=== PATIENT | male | born 1945 | race Caucasian/White ===

== ENCOUNTER 2018-07-19 09:59 | Emergency (ER) | payer MEDICARE ==
--- NOTE | 2018-07-19 11:10 | UC ---
Ear Complaint HPI - HPI Summary HPI Summary: Pt presents with c/o bilateral ear fullness. Pt states he has a hx of cerumen impaction and thinks he needs to have ears flushed. - History of Current Complaint Chief Complaint: UCEar Stated Complaint: BI LAT EAR CONCERN Time Seen by Provider: 07/19/18 10:39 Hx Obtained From: Patient Onset/Duration: Gradual Onset, Lasting Days, Still Present Severity Initially: Mild Severity Currently: Mild Pain Intensity: 0 Associated Signs/Symptoms: Positive: Hearing Loss - Allergies/Home Medications Allergies/Adverse Reactions: Allergies Allergy/AdvReac Type Severity Reaction Status Date / Time No Known Allergies Allergy Verified 12/26/15 14:30 PMH/Surg Hx/FS Hx/Imm Hx Previously Healthy: Yes - Surgical History Surgical History: Yes Surgery Procedure, Year, and Place: Removal of thymous gland-sternotomy. PROSTATE HOLED. TONSILECTOMY AGE 2 - Family History Known Family History: Positive: Cardiac Disease - Social History Occupation: Retired Lives: With Family Alcohol Use: Daily Alcohol Amount: Whiskey 3-4 drinks per day, cocktails Substance Use Type: None Smoking Status (MU): Former Smoker Have You Smoked in the Last Year: No When Did the Patient Quit Smoking/Using Tobacco: 15 years - Immunization History Vaccination Up to Date: No Review of Systems All Other Systems Reviewed And Are Negative: Yes Constitutional: Positive: Negative Skin: Positive: Negative Eyes: Positive: Negative ENT: Positive: Ear Ache Respiratory: Positive: Negative Cardiovascular: Positive: Negative Gastrointestinal: Positive: Negative Genitourinary: Positive: Negative Motor: Positive: Negative Neurovascular: Positive: Negative Musculoskeletal: Positive: Negative Neurological: Positive: Negative Psychological: Positive: Negative Is Patient Immunocompromised?: No Physical Exam Triage Information Reviewed: Yes Appearance: Well-Appearing Vital Signs: Initial Vital Signs Temp 96.8 F 07/19/18 10:25 Pulse 56 07/19/18 10:25 Resp 16 07/19/18 10:25 Pulse Ox 100 07/19/18 10:25 Vital Signs Reviewed: Yes Eye Exam: Normal ENT: Positive: Other - cerumen bilateral ear canals Dental Exam: Normal Neck exam: Normal Respiratory Exam: Normal Respiratory: Positive: Respiratory distress Musculoskeletal Exam: Normal Neurological Exam: Normal Psychological Exam: Normal Skin Exam: Normal Ear Complaint Course/Dx - Differential Dx/Diagnosis Differential Diagnosis/HQI/PQRI: Cerumen Impaction, Otitis Externa Provider Diagnosis: Excessive cerumen in both ear canals Discharge - Sign-Out/Discharge Documenting (check all that apply): Patient Departure All imaging exams completed and their final reports reviewed: No Studies - Discharge Plan Condition: Stable Disposition: HOME Patient Education Materials: Cerumen Impaction (ED) Referrals: Rey Martinez MD [Primary Care Provider] - If Needed - Billing Disposition and Condition Condition: STABLE Disposition: Home
== END 2018-07-19 11:03 | disposition home or self-care (01) ==
LOC: UCCORT 09:59
DX: H61.23 Impacted cerumen, bilateral (principal); R06.03 Acute respiratory distress; Z87.891 Personal history of nicotine dependence
CPT/HCPCS: 99213; G0463